=== PATIENT | male | born 1995 | race Two or more races ===

== ENCOUNTER 2017-03-11 12:46 | Emergency (ER) | payer OTHER, BC ==
[~2017-03-11] VITALS: Ht 180.3 cm; Wt 75.2 kg
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
[2017-03-11] MEDS ORDERED: ROBA500T PO (14:32)
[2017-03-11 14:37] VITALS: BP 118/72
== END 2017-03-11 14:43 | disposition home or self-care (01) ==
LOC: M ED 12:46
DX: S23.3XXA Sprain of ligaments of thoracic spine, initial encounter (principal); M62.830 Muscle spasm of back; V46.5XXA Car driver injured in collision with other nonmotor vehicle in traffic accident, initial encounter; Y92.410 Unspecified street and highway as the place of occurrence of the external cause; Y93.9 Activity, unspecified; Y99.1 Military activity; F17.200 Nicotine dependence, unspecified, uncomplicated